=== PATIENT | female | born 1995 | race African-American/Black ===

== ENCOUNTER 2019-12-10 15:01 | Outpatient (CLI) | payer OTHER, SELFPAY ==
--- NOTE | ~2019-12-10 | US_ITS ---
EXAMINATION: US OB <= 14 weeks fetus DATE: 12/10/2019 15:32 INDICATION: Uncertain dates. . TECHNIQUE: Real-time transabdominal pelvic ultrasound was performed. COMPARISON: None. FINDINGS: The uterus measures 10.4 x 6.7 x 8.1 cm. There is an intrauterine gestational sac. The crown ru mp length measures 4.1 cm, which correlates with an estimated gestational age of 11 weeks and 0 day(s ) (+/-) 1 week(s) and 0 day(s). heart motion is identified measuring 170 beats per minute (bpm) by M-mode Doppler. The right ovary measures 2.3 x 1.0 x 1.9 cm. The left ovary measures 3.0 x 1.8 x 2.3 cm. There is no free fluid in the pelvis. IMPRESSION: 1. Single living intrauterine gestation with estimated date of delivery of 06/30/2020. Reviewed, dictated and finalized at location A. IMPRESSION: 1. Single living intrauterine gestation with estimated date of delivery of 06/30.
== END 2019-12-10 15:02 ==
PROVIDERS: Visit Provider Obstetrics & Gynecology
DX: Z32.01 Encounter for pregnancy test, result positive (principal)
CPT/HCPCS: 76801

== ENCOUNTER 2020-04-23 20:07 | Emergency (ER) | payer OTHER, SELFPAY ==
--- NOTE | ~2020-04-23 | XR_ITS ---
EXAMINATION: XR wrist RT min 3V DATE: 04/23/2020 20:44 INDICATION: Right wrist pain. Injury. TECHNIQUE: 4 views of right wrist were obtained. COMPARISON: None. FINDINGS: Bone alignment is normal. No fracture. Joint spaces are well maintained. IMPRESSION: 1. Normal right wrist. Reviewed, dictated and finalized at location A. ING EDITOR IMPRESSION: 1. Normal right wrist.
[2020-04-23 20:10] VITALS: BP 138/57; PULSE 114; RESP 14; TEMP 36.3; O2SAT 98
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
--- NOTE | 2020-04-23 21:17 | PC.NURSE ---
L&D nurse is at bedside with monitor.
[2020-04-23 21:34] VITALS: BP 131/61; PULSE 97
[2020-04-24 00:15] VITALS: BP 125/73; PULSE 89; RESP 13; O2SAT 100
--- NOTE | 2020-04-24 00:44 | PC.NURSE ---
AT 0017 RBVO FROM EDP; DR TEA VILLAGRAN TO GENERATE, PRINT AND SIGN A ONE DAY WORK NOTE FOR THIS PT.
== END 2020-04-24 00:20 | disposition home or self-care (01) ==
PROVIDERS: Emergency Provider Emergency Medicine
DX: O9A.213 Injury, poisoning and certain other consequences of external causes complicating pregnancy, third trimester (principal); M25.531 Pain in right wrist; S09.90XA Unspecified injury of head, initial encounter; Y04.2XXA Assault by strike against or bumped into by another person, initial encounter; Z3A.30 30 weeks gestation of pregnancy
CPT/HCPCS: 36415; 73110; 85461; 99283

== ENCOUNTER 2020-06-30 05:03 | Inpatient (IN) | payer OTHER, BC, SELFPAY ==
[2020-06-30] VITALS (204 sets, daily range): BP systolic 93–144; BP diastolic 41–84; PULSE 62–142; RESP 18–20; TEMP 35.8–37.1; O2SAT 94–100; BMI 54.9
--- NOTE | 2020-06-30 05:28 | LDADM ---
This patient, Cinthia Valente, was admitted to Labor/Delivery/Recovery 102 on 06/30/20 at 05:03. Plans for labor, pain management and were discussed with patient. Patient/family oriented to hospital policies and general routines including ID bracelet, bed and alarms, visiting hours, pain management, procedures, bathroom and other care routines, personal items, smoking policy, room service/diet and guest tray routines, security routines, and visiting hours. Patient/Family are encouraged to report perceived risks to care and to ask questions if they do not understand what they are told or what they should do. See OBIX for further documentation.
[2020-06-30 05:58] LABS: Basophils Percent Auto 0.3 % (0.2-1.2); Eosinophils Percent Auto 0.2 % (0-4.4); Immature Granulocyte Absolute 0.06 K/mm3 (0.00-0.031); Immature Granulocyte Percent A 0.5 % (0-0.5); Immature Platelet Fraction Pct 13.9 % (0.9-11.2); Lymphocytes Absolute Auto 2.25 K/mm3 (0.9-3.2); Lymphocytes Percent Auto 18.9 % (18.3-44.2); Mean Corpuscular HGB Conc 31.3 g/dl (32-36); Mean Corpuscular Hemoglobin 26.8 pg (26-34); Mean Corpuscular Volume 85.8 fl (80-100); Monocytes Absolute Auto 0.6 K/mm3 (0.1-0.6); Monocytes Percent Auto 5.2 % (2.6-8.5); Neutrophils Absolute Auto 8.9 K/mm3 (1.3-6.7); Neutrophils Percent Auto 74.9 % (45.5-73.1); Platelet Count Result 164 k/mm3 (150-375); Red Blood Count 3.73 M/mm3 (4.2-5.4); Red Cell Distribution Width 18.6 % (11.5-14.5); White Blood Count 11.9 K/mm3 (4.5-10.0)
[2020-06-30] MEDS: OXYTOCIN 30 UNITS/NS 500 ML 30 UNITS/500 ML BAG 6 UNITS IV CONT (06:00)
[2020-06-30] MEDS: LACTATED RINGERS 1,000 ML 125 ML IV CONT ×5 (06:00→21:45)
[2020-06-30 08:50] LABS: Rapid Plasma Reagin Non-Reactive (NonReactive)
--- NOTE | 2020-06-30 11:55 | WPDOBADMIT ---
Obstetrics - Admit Note Admission Note: AROm clear fluid /-2 clear fluid. vertex. record reviewed. No pertinent additions to the history and/or any subsequent changes in the physical findings that are not consistent with the expected course of the were found. Additions to the history and/or subsequent changes in the physical findings follow. None.
[2020-06-30] MEDS: fentaNYL CITRATE INJ (*CRX) 100 MCG/2 ML VIAL 50 MCG IV PUSH (12:19)
[2020-06-30] MEDS: ONDANSETRON INJ 4 MG/2 ML VIAL IV PUSH (13:11)
--- NOTE | 2020-06-30 13:51 | WPDANESEPP ---
Anes - Eval Pre Procedure Procedure: Labor Epidural Date/Time: 06/30/20 13:51 Surgeon: Truong Preop Diagnosis: Labor Pain Pre Op Diagnosis: Induction of Labor Patient Data Age: 25 Gender: F Height: 5 ft 2 in Weight: 136.3 kg Last Vital Signs Temp 36.6 C 06/30/20 05:19 Pulse 87 06/30/20 13:32 Resp 20 06/30/20 05:19 BP 132/70 06/30/20 13:32 Allergies Allergy/AdvReac Type Severity Reaction Status Date / Time shellfish derived Allergy Nausea and Verified 05/23/20 08:54 Vomiting Home Medications Medication Instructions Recorded Confirmed Type ergocalciferol (vitamin D2) 1,000 unit PO DAILY 04/23/20 06/30/20 History prenat.vits,deepika,asm-cwyn-fwprm 1 tablet PO DAILY 04/23/20 06/30/20 History [ Vitamin] Laboratory Tests 06/30/20 06/30/20 06/30/20 05:44 05:44 06:36 WBC 11.9 K/mm3 H K/mm3 (4.5-10.0) RBC 3.73 M/mm3 L M/mm3 (4.2-5.4) Hgb 10.0 g/dL L g/dL (12.0-15.0) Hct 32.0 % L % (37.0-47.0) MCV 85.8 fl fl (80-100) MCH 26.8 pg pg (26-34) MCHC 31.3 g/dl L g/dl (32-36) RDW 18.6 % H % (11.5-14.5) Plt Count 164 k/mm3 k/mm3 (150-375) MPV 12.0 fl H fl (7.4-10.4) Immature Gran % (Auto) 0.5 % % (0-0.5) Neut % (Auto) 74.9 % H % (45.5-73.1) Lymph % (Auto) 18.9 % % (18.3-44.2) [place] % (Auto) 5.2 % % (2.6-8.5) Eos % (Auto) 0.2 % % (0-4.4) Baso % (Auto) 0.3 % % (0.2-1.2) Lymph # (Auto) 2.25 K/mm3 K/mm3 (0.9-3.2) [place] # (Auto) 0.6 K/mm3 K/mm3 (0.1-0.6) Eos # (Auto) 0.0 K/mm3 K/mm3 (0-0.3) Baso # (Auto) 0.0 K/mm3 K/mm3 (0.0-0.1) Abs Immat Gran (auto) 0.06 K/mm3 H K/mm3 (0.00-0.031) Absolute Neuts (auto) 8.9 K/mm3 H K/mm3 (1.3-6.7) Absolute Nucleated RBC 0.0 K/mm3 K/mm3 (0.0-0.012) Nucleated RBC % 0.0 % % (0.0-0.2) % Immature Plt Fraction 13.9 % H % (0.9-11.2) RPR Non-reactive (NonReactive) Blood Type O Positive Antibody Screen Negative Patient hx anesthesia problems: none Family hx anesthesia problems: none [facility] Past Medical History Medical History No active medical problems Family History Family History Father Hypertension Grandparent Hypertension Diabetes mellitus Social History Social History Smoking status: Never smoker Substance use: never Gender identity (if verbalized by the patient): Female Spiritual care concerns: No Exam Day of Procedure 06/30/20 13:51 Patient weight: morbidly obese Heart: regular rate and rhythm Lungs: normal air movement Airway: Mallampati scale class II Neurological: alert and oriented
[2020-07-01] VITALS (254 sets, daily range): BP systolic 85–152; BP diastolic 38–132; PULSE 59–196; RESP 15–20; TEMP 36.5–37.4; O2SAT 82–100
[2020-07-01] MEDS: ONDANSETRON INJ 4 MG/2 ML VIAL IV PUSH (03:04)
[2020-07-01] MEDS: LACTATED RINGERS 1,000 ML 125 ML IV CONT ×2 (03:04→06:20)
[2020-07-01] MEDS: AMPICILLIN 2 GM/NS 100 ML 2 GM/100 ML BAG IVPB (05:19)
[2020-07-01] MEDS: SODIUM CHLORIDE 0.9% IV 1,000 ML 150 ML I-UTERINE (05:35)
[2020-07-01] MEDS: AMPICILLIN 1 GM/NS 50 ML 1 GM/50 ML BAG IVPB (09:43)
--- NOTE | 2020-07-01 11:46 | PM.IMHP ---
H&P: HPI History of Present Illness Date/Time: 07/01/20 11:46 Chief Complaint: no further dilation Narrative: Cinthia Valente is a 25 year old female primip admitted for IOL. Patient AROm clear fluid and IUPC placed. Patient pitocin discontinued for decels which resolved .Patient labor progressed to 9 cm with no casino change attendant last 5 hours despite adequate contractions. Patient reports movement PMFSH Past Medical History Medical History No active medical problems Family History Family History Father Hypertension Grandparent Hypertension Diabetes mellitus Social History Social History Smoking status: Never smoker Substance use: never Gender identity (if verbalized by the patient): Female Spiritual care concerns: No Meds Home Medications and Allergies Home Medications Medication Instructions Recorded Confirmed Type ergocalciferol (vitamin D2) 1,000 unit PO DAILY 04/23/20 06/30/20 History prenat.vits,deepika,kvh-ffay-xrnue 1 tablet PO DAILY 04/23/20 06/30/20 History [ Vitamin] Allergies Allergy/AdvReac Type Severity Reaction Status Date / Time shellfish derived Allergy Nausea and Verified 05/23/20 08:54 Vomiting Vital Signs Vital Signs - 24 hr 06/30/20 12:00 06/30/20 12:01 06/30/20 12:32 Temperature 36.3 C L Pulse Rate 89 79 Respiratory Rate Blood Pressure 123/72 133/72 Pulse Oximetry 06/30/20 13:02 06/30/20 13:32 06/30/20 13:58 Temperature Pulse Rate 80 87 Respiratory Rate Blood Pressure 134/60 132/70 Pulse Oximetry 100 06/30/20 14:00 06/30/20 14:02 06/30/20 14:03 Temperature 35.8 C L Pulse Rate 91 89 Respiratory Rate Blood Pressure 144/69 H 140/61 Pulse Oximetry 99 06/30/20 14:04 06/30/20 14:07 06/30/20 14:08 Temperature Pulse Rate 95 90 Respiratory Rate Blood Pressure 131/71 132/68 Pulse Oximetry 100 06/30/20 14:09 06/30/20 14:13 06/30/20 14:14 Temperature Pulse Rate 107 H 86 Respiratory Rate Blood Pressure 135/70 131/70 Pulse Oximetry 100 06/30/20 14:17 06/30/20 14:18 06/30/20 14:19 Temperature Pulse Rate 75 82 Respiratory Rate Blood Pressure 126/52 L 117/48 L Pulse Oximetry 100 06/30/20 14:22 06/30/20 14:23 06/30/20 14:24 Temperature Pulse Rate 79 75 Respiratory Rate Blood Pressure 114/57 L 112/49 L Pulse Oximetry 100 06/30/20 14:27 06/30/20 14:28 06/30/20 14:29 Temperature Pulse Rate 72 71 Respiratory Rate Blood Pressure 118/52 L 119/55 L Pulse Oximetry 99 06/30/20 14:32 06/30/20 14:33 06/30/20 14:34 Temperature Pulse Rate 70 70 Respiratory Rate Blood Pressure 113/56 L 115/56 L Pulse Oximetry 98 06/30/20 14:37 06/30/20 14:38 06/30/20 14:39 Temperature Pulse Rate 76 71 Respiratory Rate Blood Pressure 115/53 L 111/55 L Pulse Oximetry 99 06/30/20 14:42 06/30/20 14:43 06/30/20 14:44 Temperature Pulse Rate 72 76 Respiratory Rate Blood Pressure 108/55 L 106/63 Pulse Oximetry 98 06/30/20 14:47 06/30/20 14:48 06/30/20 14:49 Temperature Pulse Rate 68 70 Respiratory Rate Blood Pressure 110/52 L 109/53 L Pulse Oximetry 97 06/30/20 14:52 06/30/20 14:53 06/30/20 14:54 Temperature Pulse Rate 71 73 Respiratory Rate Blood Pressure 113/50 L 109/50 L Pulse Oximetry 98 06/30/20 14:57 06/30/20 14:58 06/30/20 15:02 Temperature Pulse Rate 67 76 Respiratory Rate Blood Pressure 104/49 L 107/66 Pulse Oximetry 98 06/30/20 15:03 06/30/20 15:08 06/30/20 15:13 Temperature Pulse Rate Respiratory Rate Blood Pressure Pulse Oximetry 100 97 100 06/30/20 15:17 06/30/20 15:18 06/30/20 15:23 Temperature Pulse Rate 74 Respiratory Rate Blood Pressure 112/64 Pul
[2020-07-01] MEDS: ceFAZolin 3 GM/D5W 100 ML 100 ML IVPB (11:55)
[2020-07-01] MEDS: OXYTOCIN 30 UNITS/NS 500 ML 30 UNITS/500 ML BAG 125 UNITS IV CONT (13:35)
[2020-07-01] MEDS: KETOROLAC 30 MG/ML VIAL (*BKC) IV PUSH (15:19)
[2020-07-01] MEDS: MORPHINE SULFATE (*CRX) 2 MG/ML INJ 3 MG IV PUSH (15:20)
--- NOTE | 2020-07-01 15:40 | PC.NURSE ---
Pt transferred to room 288 via stretcher accompanied by her mother and infant. Pt alert and awake and oriented to room 288 and surrounding area. PT transferred to bed via maxi air without difficulty. PT introductions made and plan of care discussed per post op c section, pain management, breast feeding, daily care activities. Welcome packet reviewed and discussed. PT verbalized understanding of such care.
[2020-07-01] MEDS: DOCUSATE SODIUM 100 MG CAPSULE PO (17:53)
[2020-07-01] MEDS: SIMETHICONE 80 MG TAB.CHEW PO (17:53)
[2020-07-01] MEDS: LANOLIN (LANSINOH) 7.5 GM CREAM 1 APPLIC TOPICAL (17:53)
[2020-07-01] MEDS: DEXTROSE 5%/0.45% SOD CHL 1,000 ML 125 ML IV CONT (17:57)
[2020-07-01] MEDS: IBUPROFEN 600 MG TABLET PO (23:13)
[2020-07-01] MEDS: HYDROcodone/acetaminophen (*CRX) 5-325 MG TABLET 1 TAB PO (23:13)
--- NOTE | 2020-07-02 00:20 | PM.PROC ---
Procedure Note - Detailed Date of procedure: 07/02/20 Pre-op diagnosis: Induction of Labor Post-op diagnosis: other (arrest of descent, arrest of dilation) Procedure performed: LTCS Description of procedure: patient was taken to the operating room with IV running. She was prepped and draped in a normal sterile fashion after epidural was found to be adequate. A Pfannenstiel skin incision was made with a scalpel carried down to the underlying layer of fascia. The fascial incision was then extended bilaterally with Louise scissors. The superior aspect of the incision was grasped with Bebeto clamps elevated and dissected off the rectus muscles. The inferior aspect of the incision was grasped with Bebeto clamps elevated and dissected off the rectus muscles. The rectus muscles were in the midline prior to proceeding to the peritoneum there was a rectal area bleeding that was suture ligated with 0 Vicryl suture. The peritoneum was entered bluntly bladder blade was inserted vesicouterine peritoneum was grasped with the PK and entered sharply with the Metzenbaum scissors and the bladder flap was created digitally. Bladder blade was reinserted and lower uterine segment was incised with a transverse fashion with the scalpel. head was delivered atraumatically the remainder of the fetus was delivered the cord was clamped and cut. and the fetus was handed off to the waiting nurse. Cord blood and cord gases were obtained. The placenta delivered spontaneously. The uterus was exteriorized and cleared of all clots and debris. Uterine incision was closed 0 Monocryl in a running locked fashion a 2nd layer the same suture was used to imbricate this incision on the patient's right corner of the incision and a enaznc-jl-paifu stitch was placed for hemostasis. The uterus was returned to the abdomen the gutters were cleared of all clots and debris and irrigated copiously. The uterine incision was covered in Interceed and T fashion. The muscles were re-examined for hemostasis the fascia was closed with 0 Vicryl in a running fashion. Subcutaneous tissue was irrigated and closed with 0 plain gut and the skin was closed with 4-0 Vicryl on a Donta needle patient received precancer Ancef prior to skin incision Anesthesia: epidural Surgeon: Demetrius Guerin MD Estimated blood loss (mL): 825 Urine output (mL): 200 Drains: Yes Packing: No Pathology: none sent Complications: None Condition: stable Disposition: PACU Findings: female vertex OT position
[2020-07-02 04:15] VITALS: BP 110/79; PULSE 91; RESP 20; TEMP 37.1
[2020-07-02 05:06] LABS: Basophils Percent Auto 0.2 % (0.2-1.2); Eosinophils Percent Auto 0.1 % (0-4.4); Hematocrit 26.3 % (37.0-47.0); Hemoglobin 8.3 g/dL (12.0-15.0); Immature Granulocyte Absolute 0.06 K/mm3 (0.00-0.031); Immature Granulocyte Percent A 0.4 % (0-0.5); Lymphocytes Percent Auto 13.5 % (18.3-44.2); Mean Corpuscular HGB Conc 31.6 g/dl (32-36); Mean Corpuscular Hemoglobin 26.3 pg (26-34); Mean Corpuscular Volume 83.5 fl (80-100); Mean Platelet Volume 12.3 fl (7.4-10.4); Monocytes Absolute Auto 1.1 K/mm3 (0.1-0.6); Monocytes Percent Auto 6.8 % (2.6-8.5); Neutrophils Absolute Auto 12.3 K/mm3 (1.3-6.7); Platelet Count Result 180 k/mm3 (150-375); Red Blood Count 3.15 M/mm3 (4.2-5.4); Red Cell Distribution Width 18.2 % (11.5-14.5); White Blood Count 15.5 K/mm3 (4.5-10.0)
[2020-07-02] MEDS: SIMETHICONE 80 MG TAB.CHEW PO ×2 (07:15→16:31)
[2020-07-02] MEDS: MULTIVIT/MIN/PREN/FOL AC/IRON TABLET 1 TAB PO (07:15)
[2020-07-02] MEDS: DOCUSATE SODIUM 100 MG CAPSULE PO ×2 (07:15→16:34)
[2020-07-02] MEDS: IBUPROFEN 600 MG TABLET PO ×2 (07:15→16:32)
[2020-07-02] MEDS: HYDROcodone/acetaminophen (*CRX) 10-325 MG TABLET 1 TAB PO ×2 (07:16→16:32)
[2020-07-02] MEDS: POLYSACCHARIDE IRON COMPLEX 150 MG CAPSULE PO ×2 (07:16→16:34)
--- NOTE | 2020-07-02 07:32 | WPDANLDNPN2 ---
Anes-Prog Note L&D-Neuraxial Date/Time: 07/02/20 07:32 Neuraxial medications: epidural PF morphine Opiod-related complaints: none Patient feedback: Patient satisfied with post-operative pain management.
--- NOTE | 2020-07-02 07:32 | WPDANLDPN2 ---
Anes-Prog Note L&D Date/Time: 07/02/20 07:32 Comfortable throughout: section Neuraxial method: epidural Epidural/Spinal procedure site: clean & non-tender Neuro status: Neuro function grossly intact. Cardiovascular status: normal Respiratory status: normal Airway patency: baseline Mental status: baseline Post-Op hydration status: normal Vital Signs: Last Vital Signs Temp 37.1 C 07/02/20 04:15 Pulse 91 07/02/20 04:15 Resp 20 07/02/20 04:15 BP 110/79 07/02/20 04:15 Pulse Ox 95 07/01/20 18:00 Pain score (VAS): no complaints I/O: Intake & Output 07/01/20 07/01/20 07/02/20 15:59 23:59 07:59 Intake Total 350 1120 200 Output Total 1265 950 600 Balance -915 170 -400 Post-procedural complaints: none Patient feedback: Patient satisfied with anesthetic care.
[2020-07-02 17:54] VITALS: BP 116/52; PULSE 94; RESP 18; TEMP 36.7
[2020-07-02 20:00] VITALS: BP 120/62; PULSE 88; RESP 16; TEMP 36.8; O2SAT 100
--- NOTE | 2020-07-03 00:59 | PM.OBPNVD ---
OB - PN: Subj Subjective Date/time seen: 07/03/20 00:59 Patient reports doing well no complaints. OB - PN: Obj Data Labs CBC & Chem 7: 07/02/20 04:18 Labs: Laboratory Results - last 24 hr 07/02/20 04:18 WBC 15.5 H RBC 3.15 L Hgb 8.3 L Hct 26.3 L MCV 83.5 MCH 26.3 MCHC 31.6 L RDW 18.2 H Plt Count 180 MPV 12.3 H Immature Gran % (Auto) 0.4 Neut % (Auto) 79.0 H Lymph % (Auto) 13.5 L [place] % (Auto) 6.8 Eos % (Auto) 0.1 Baso % (Auto) 0.2 Lymph # (Auto) 2.10 [place] # (Auto) 1.1 H Eos # (Auto) 0.0 Baso # (Auto) 0.0 Abs Immat Gran (auto) 0.06 H Absolute Neuts (auto) 12.3 H Absolute Nucleated RBC 0.0 Nucleated RBC % 0.0 OB - PN A/P Assessment and Plan (1) Arrest of descent, delivered, current hospitalization: Code(s): O62.1 - Secondary uterine inertia Status: Acute (2) S/P emergency : Code(s): Z98.891 - History of uterine scar from previous surgery Status: Acute Assessment and Plan: continue with pp care. Time Spent With Patient Time: Total time spent is greater than 50% in coordination of care (as documented) at patient's floor/unit and/or counseling patient: Exam GI: Other: incision C/D/I
[2020-07-03] MEDS: HYDROcodone/acetaminophen (*CRX) 10-325 MG TABLET 1 TAB PO (03:54)
[2020-07-03] MEDS: SIMETHICONE 80 MG TAB.CHEW PO (03:54)
[2020-07-03] MEDS: IBUPROFEN 600 MG TABLET PO (03:55)
[2020-07-03] MEDS: DOCUSATE SODIUM 100 MG CAPSULE PO (08:34)
[2020-07-03] MEDS: HYDROcodone/acetaminophen (*CRX) 5-325 MG TABLET 1 TAB PO (08:34)
[2020-07-03] MEDS: MULTIVIT/MIN/PREN/FOL AC/IRON TABLET 1 TAB PO (08:34)
[2020-07-03] MEDS: CHOLECALCIFEROL 1,000 UNITS TABLET 1000 UNITS PO (08:34)
[2020-07-03] MEDS: POLYSACCHARIDE IRON COMPLEX 150 MG CAPSULE PO (08:34)
--- NOTE | 2020-07-03 08:35 | PC.NURSE ---
Patient viewed the discharge video Mother & Baby Care, The First Two Weeks . Patient was given the opportunity and encouraged to ask questions. Patient verbalized understanding of information shared and has been given the mother/baby guide for home reference.
[2020-07-03 09:30] VITALS: BP 125/67; PULSE 85; RESP 18; TEMP 36.3; O2SAT 97
--- NOTE | 2020-07-03 09:42 | PM.OBPNVD ---
OB - PN: Subj Subjective Date/time seen: 07/03/20 09:42 Patient comments: no complaints and pain well controlled (taking minimal Kamrar) [place] baby status: doing well OB - PN: Obj Data Labs CBC & Chem 7: 07/02/20 04:18 OB - PN A/P Assessment and Plan (1) S/P emergency : Code(s): Z98.891 - History of uterine scar from previous surgery Status: Acute Assessment and Plan: POD 2 Doing well. DC home. Plans Mirena for control Plan day: 2 Time Spent With Patient Time: Total time spent is greater than 50% in coordination of care (as documented) at patient's floor/unit and/or counseling patient: Exam Narrative: Exam Narrative: inc c/d/i : Bimanual exam- vagina & uterus: other (Uterus firm, nt @U)
--- NOTE | 2020-07-03 10:41 | PC.NURSE ---
Mother verbalizes she is able to independently latch with appropriate positioning/alignment. Offered to help wake infant and assess feeding. Mom states, I have been latching her the whole time by myself. She latches fine. Mom states she was going to bottle feed her pumped colostrum this feeding. Infant takes 8ml of pumped colostrum quickly. Encouraged mom to latch if infant still seems hungry. Mom states she is having minimal nipple discomfort, is feeding as required and waking to feed if needed. has had 7 effective feedings at the breast in the past 24 hours and one feeding of pumped colostrum, and is currently meeting outcomes for weight, output, jaundice and feeding frequencies. Educated mom on waking to feed at the 3 hour louisa after each feeding and to get 8-12 feedings in 24 hours. Reviewed ways to wake including taking down to her diaper, doing skin to skin, changing diapers, burping, rubbing her head/back. Mother states she feels confident to continue effective at home. Reviewed transition to breast milk, signs of adequate intake, and engorgement/relief. Instructed to call ICP if intake/output less than required. Reviewed community resources on the [facility] website and in the Mom/Baby guide. Information on outpatient services provided. Mother has no further questions at this time.
--- NOTE | 2020-07-17 11:20 | PM.OBDSVD ---
DS: Admitting Diagnosis Admitting Diagnosis Admitting Diagnosis: IOL DS: Discharge Diagnosis Discharge Diagnosis (1) S/P emergency : Code(s): Z98.891 - History of uterine scar from previous surgery Status: Acute (2) Arrest of descent, delivered, current hospitalization: Code(s): O62.1 - Secondary uterine inertia Status: Acute OB - DS: Summary OB Procedures : Ultrasound OB Procedures Intrapartum: OB Procedures: : None Peripartum Data Procedures: Procedures Operation Date: 07/01/20 11:30 Actual Procedures Side Surgeon p Section Demetrius Guerin MD Time Spent with Patient Time attestation: Total time spent providing and/or coordinating discharge services: Discharge Plan Discharge Attending physician on discharge: Demetrius Guerin Discharging Clinician: Evi Garcia Anticipated Discharge Date/Time: 07/03/20 09:44 Patient Disposition: Home, Self-Care Activity: may shower, may drive after 2 weeks and pelvic rest Diet: regular Discharge Instructions: Education: Mom and Baby Guide and Preeclampsia Handout Given to: Mother Follow-Up: Call your delivering provider's office for an appointment to be seen in: 1 Week Mom and baby should come to the [facility] for the follow-up appointment. Appointment Date/Time: July 04, 2020 at 8:00 am What to expect at your follow-up visit: Physical Assessment Call [phone] if you are unable to keep your appointment time. BREAST CARE: * Wear a snug supportive bra. * For engorgement discomfort: Breast Feeding: * Apply warm moist washcloths * Express milk as needed to relieve engorgement * Wear loose clothing * For sore nipples: * Identify correct latch-on * Apply warm moist washcloths before and after nursing * Air dry nipples after nursing * May apply Lansinoh cream to nipples ABDOMINAL INCISION: (if applicable) * Allow incision to air dry * Do NOT use lotions for powders on your incision * When showering, allow soap and water to run over the incision, but do not wash incision EPISIOTOMY/PERINEAL CARE: * Until bleeding stops, use your robina bottle after urinating * Change your pad frequently throughout the day * No tub baths until seen by your physician - You may shower ACTIVITY: * Rest as much as possible. * Do not exercise or lift anything heavier than your baby (such as laundry or other children.) * Avoid stairs or driving as much as possible. * Do not put anything into the vagina. No douching, tampons, or sexual activity until seen by physician. NOTIFY PHYSICIAN IF YOU HAVE ANY QUESTIONS OR IF ANY OF THE FOLLOWING SYMPTOMS OCCUR: * If your incision becomes red, swollen, or more painful than what you have experienced in the hospital. * If your vaginal bleeding becomes foul smelling. * If your vaginal bleeding becomes more heavy than a period or if your bleeding changes from pink to bright red. However, you may pass an occasional walnut-sized clot once or twice for the first week . * If you experience a sharp, shooting pain in you calves. * If you discover a hard, reddened area on your breast or if you experience flu-like symptoms. DIET: * Eat regular, well-balanced meals. * Drink plenty of fluids daily. If , drink to thirst. Stand Alone Forms: General Discharge Information Follow-up/Referrals: Evi Garcia MD [Physician] - Demetrius Guerin MD [Physician] - 1 Week (and 6 wk) Discharge Medications: New hydrocodone-acetaminophen 5-325 mg Tablet 1 tablet PO Q3H PRN (Reason: Moderate Pain (4-6)) Qty: 15 RF: 0 Continued ergocalciferol (vitamin D2) 1,000 unit Capsule 1,000 unit PO DAILY RF: 0 prenat.vits,deepika,noe-dztb-chvds Tablet 1 tablet PO DAILY RF: 0 Date of admission: 06/30/20 05:03 Primary
== END 2020-07-03 12:41 | disposition home or self-care (01) | DRG 788 ==
LOC: ANHLDR 05:08 → ANHOB2 07-03 09:46 → ANHLDR 07-06 11:10 → ANHOB2 07-06 11:10
PROVIDERS: Admitting Provider Obstetrics & Gynecology; PCP Physician Assistant; Visit Provider Obstetrics & Gynecology Gynecology
PROC: (CPT 59514; principal; 2020-07-01 11:30)
DX: O34.211 Maternal care for low transverse scar from previous cesarean delivery (principal); Z37.0 Single live birth; Z3A.39 39 weeks gestation of pregnancy; O42.90 Premature rupture of membranes, unspecified as to length of time between rupture and onset of labor, unspecified weeks of gestation; O99.214 Obesity complicating childbirth; E66.01 Morbid (severe) obesity due to excess calories; O62.1 Secondary uterine inertia; O36.8330 Maternal care for abnormalities of the fetal heart rate or rhythm, third trimester, not applicable or unspecified
CPT/HCPCS: 36415; 85025; 85055; 86592; 86850; 86900; 86901; A9270; J0131; J0290; J0690; J1885; J2270; J2274; J2405; J2590; J2795; J3010; J7030; J7120

== ENCOUNTER 2023-11-12 17:30 | Emergency (ER) | payer MEDICAID, SELFPAY ==
[2023-11-12 17:39] VITALS: BP 144/88; PULSE 93; RESP 16; TEMP 36.9; O2SAT 100
--- NOTE | 2023-11-12 18:30 | ED.GENADULT ---
HPI - General Adult General Chief complaint: PERSONNEL DIRECTOR <Candelario Aviles MD - Last Filed: 11/12/23 18:32> Stated complaint: yeast infection <Candelario Aviles MD - Last Filed: 11/12/23 18:32> Time Seen by Provider: 11/12/23 17:39 <Candelario Aviles MD - Last Filed: 11/12/23 18:32> History of Present Illness HPI narrative: Patient is a 28-year-old female who presents ER with 3 days of vaginal discharge. It began 3 days after finishing antibiotic and she is concerned it could be a yeast infection. But she had also been in the swimming pool that sometimes gives her vaginal discharge and she has been sexually active with a partner she is concerned have an STI. She would like full evaluation. No pelvic cramping or pain. No urinary frequency urgency or dysuria. <Candelario Aviles MD - Last Filed: 11/12/23 18:32> Related Data Home medications: Home Medications Medication Instructions Recorded Confirmed ergocalciferol (vitamin D2) 1,000 1,000 unit PO DAILY 04/23/20 06/30/20 unit capsule prenat.vits,deepika,[id number] 1 tablet PO DAILY 04/23/2021 <Candelario Aviles MD - Last Filed: 11/12/23 18:32> Allergies/adverse reactions: Allergies Allergy/AdvReac Type Severity Reaction Status Date / Time shellfish derived Allergy Nausea and Verified 05/23/20 08:54 Vomiting <Candelario Aviles MD - Last Filed: 11/12/23 18:32> Review of Systems Constitutional: Constitutional: Reports no additional constitutional complaints <Candelario Aviles MD - Last Filed: 11/12/23 18:32> Gastrointestinal: Gastrointestinal: Reports no additional gastrointestinal complaints <Candelario Aviles MD - Last Filed: 11/12/23 18:32> Genitourinary: Genitourinary: Denies abnormal vaginal bleeding, Denies nocturia, Denies dysuria, Denies pelvic pain and Reports vaginal discharge <Candelario Aviles MD - Last Filed: 11/12/23 18:32> PMFSH Past Medical History Medical History: Medical History (Updated 11/12/23 @ 20:27 by Jamey Obando MD) Arrest of descent, delivered, current hospitalization No active medical problems <Candelario Aviles MD - Last Filed: 11/12/23 18:32> Surgical History Surgical History: Surgical History (Updated 07/03/20 @ 01:00 by Demetrius Guerin MD) S/P emergency <Candealrio Aviles MD - Last Filed: 11/12/23 18:32> Family History Family History: Family History Father Hypertension Grandparent Hypertension Diabetes mellitus <Candelario Aviles MD - Last Filed: 11/12/23 18:32> Social History Social History: Social History Smoking status: Never smoker Substance use: never Gender identity (if verbalized by the patient): Female Spiritual care concerns: No <Candelario Aviles MD - Last Filed: 11/12/23 18:32> Exam Narrative: GENERAL: Well-appearing, Morbidly obese, and in no acute distress. HEAD: Normocephalic, atraumatic. ENT: Mucous membranes moist. CHEST: Clear to auscultation. No respiratory distress. HEART: Regular rate and rhythm. Normal peripheral pulses. ABDOMEN: Soft, nontender, nondistended. : normal appearing cervix, pooling vaginal discharge that is whitish yellow. Normal external genitalia. No CMT. EXTREMITIES: Normal range of motion. No edema. NEURO: Alert and oriented x3. PSYCH: Normal mood and affect. <Candelario Aviles MD - Last Filed: 11/12/23 18:32> Course Vital Signs Vital signs: Vital Signs Temperature 36.9 C 11/12/23 17:39 Pulse Rate 93 11/12/23 17:39 Respiratory Rate 16 11/12/23 17:39 Blood Pressure 144/88 H 11/12/23 17:39 Pulse Oximetry 100 11/12/23 17:39 Oxygen Delivery Room Air 11/12/23 17:39 Temperature 36.9 C 11/12/23 17:39 Pulse Rate 93 11/12/23 17:39 Respiratory Rate 16 11/12/23 17:39 Blood Pressure 144/88 H
[2023-11-12 18:59] LABS: Appearance Urine Cloudy (Clear); Bacteria Urine 3+ /hpf; Bilirubin Urine Negative (Negative); Blood Urine Negative (Negative); Color Urine Yellow (Yellow); Glucose Urine UA Negative (Negative); Ketones Urine Trace mg/dL (Negative); Leukocyte Esterase Ur 1+ LEU/UL (Negative); Nitrate Urine Negative (Negative); Non Pathogenic Casts 0-2; Protein Urine Trace mg/dL (Negative); RBC Urine 0-2 /hpf (0-2); Squamous Epithelial Cell Urine Moderate /hpf (Few); pH Urine 6.5 (5.0-9.0)
[2023-11-12 19:05] LABS: Add Urine Microscopic? YES; Specific Grav Ur 1.037 (1.001-1.035)
[2023-11-12 19:42] LABS: Trichomonas Vag PCR DETECTED (NOT DETECTE)
[2023-11-12 20:17] LABS: Chlamydia trachomatis NOT DETECTED (NOT DETECTE); Neisseria gonorrhoeae PCR NOT DETECTED (NOT DETECTE)
[2023-11-12] MEDS: metroNIDAZOLE 500 MG TABLET PO (20:46)
[2023-11-12] MEDS: AZITHROMYCIN 250 MG TABLET 1000 MG PO (20:46)
[2023-11-12] MEDS: LIDOCAINE HCL 1% LOCAL INJ 10 ML VIAL (20:58)
[2023-11-12] MEDS: cefTRIAXone 1 GM VIAL IM (20:58)
[2023-11-12 21:02] VITALS: BP 122/79; PULSE 82; RESP 19; O2SAT 100
== END 2023-11-12 21:02 | disposition home or self-care (01) ==
PROVIDERS: Emergency Provider Emergency Medicine
DX: A59.01 Trichomonal vulvovaginitis (principal); N39.0 Urinary tract infection, site not specified
CPT/HCPCS: 81001; 81025; 87086; 87088; 87491; 87591; 87661; 96372; 99284; A9270; J0696

== ENCOUNTER 2024-04-08 15:07 | Emergency (ER) | payer OTHER, MEDICAID, SELFPAY ==
--- NOTE | 2024-04-08 15:14 | ED_ITS ---
HPI - Female Genitourinary General Chief complaint: Urogenital-Female Stated complaint: UTI Time Seen by Provider: 04/08/24 15:23 Source: patient, RN notes reviewed and old records reviewed Mode of arrival: ambulatory Limitations: no limitations History of Present Illness HPI Narrative: 28-year-old female presents to the [facility] with concerns for UTI. Patient reports frequency for about a week. Noticed some discomfort with urination, lower abdominal, suprapubic discomfort over the last 2 days. Has been increasing her water intake and drinking cranberry juice. Denies any fevers, nausea, vomiting or diarrhea. Denies any significant abdominal pain. No CVA tenderness. Denies chances of . Patient reports having a tubal ligation. Related Data Home Medications Medication Instructions Recorded Confirmed ergocalciferol (vitamin D2) 1,000 1,000 unit PO DAILY 04/23/20 04/08/24 unit capsule prenat.vits,deepika,[id number] 1 tablet PO DAILY 04/23/20 06/30/20 Allergies Allergy/AdvReac Type Severity Reaction Status Date / Time shellfish derived Allergy Nausea and Verified 04/08/24 15:08 Vomiting Review of Systems Review of Systems: All systems reviewed & are unremarkable except as noted in HPI and below Constitutional: Constitutional: Reports no additional constitutional complaints ENT: Reports system reviewed and no additional complaints, except as documented Cardiovascular: Cardiovascular: Reports no additional cardiovascular complaints, Denies chest pain and Denies dyspnea Respiratory: Respiratory: Reports no additional respiratory complaints, Denies chest congestion, Denies cough and Denies dyspnea Gastrointestinal: Gastrointestinal: Reports no additional gastrointestinal complaints, Denies abdominal pain, Denies nausea and Denies vomiting Genitourinary: Genitourinary: Reports as per HPI Musculoskeletal: Musculoskeletal: Reports no additional musculoskeletal complaints Integumentary/Breasts: Skin/Breast: Reports system reviewed and no additional complaints, except as docu PMFSH Past Medical History Medical History Arrest of descent, delivered, current hospitalization No active medical problems Surgical History Surgical History H/O tubal ligation Hx of cholecystectomy 06/2023 S/P emergency Family History Family History Father Hypertension Grandparent Hypertension Diabetes mellitus Social History Social History Smoking status: Never smoker Substance use: never Gender identity (if verbalized by the patient): Female Spiritual care concerns: No Comments At the time of my signature, I reviewed and agree with the nursing past medical, surgical, social, and family history. There is no relevant family history pertinent to the patient complaint. Exam Const: General: cooperative, healthy appearing, comfortable, no acute distress, well developed, alert and well nourished Nutritional Appearance: well nourished and obese Orientation/consciousness: patient oriented x3 Limitations: no limitations HENMT: Head: normal to inspection Ears: hearing grossly normal bilaterally and external ears normal Face/Nose/Sinus: Normal external nose present, normal facial exam and face symmetric Face and sinus: normal facial exam and face symmetric Eyes: General: appearance normal, both eyes and all related structures Alignment and Position: alignment normal Periorbital: periorbital findings normal Neck: Neck: normal visual inspection, full ROM, no lymphadenopathy and no meningeal signs Chest: Chest palpation & inspection: normal inspection of the chest Resp: Effort & Inspection: normal respiratory effort and able to speak in complete sentences Auscultation: clear to auscultation bilaterally, no crackles, no rales, no rhonchi and no wheezes Cardio: Rate: regular rate Skin: General skin exam: normal color and no rashes or lesions noted Lesions: no lesions Rashes: no rashes Wounds: no wounds Neuro: General: patient oriented x3, gait normal, tone normal, moves all extremities and no meningeal signs Cognition (Neuro): normal cognition S peech: normal speech Gait exam (Neuro): Normal gait present Extrem: General: normal to inspection, full ROM, capillary refill normal and normal gait Psych: Appearance: grossly normal and well kempt Mental Status: mental status grossly normal Speech and movement: Normal speech and movement present and Clear speech present Affect: normal affect Attitude: cooperative Course Course Level of Care: Express Care Visit Vital Signs Vital signs: Vital Signs Temperature 97.9 F 04/08/24 15:15 Pulse Rate 80 04/08/24 15:15 Respiratory Rate 16 04/08/24 15:15 Blood Pressure 134/75 04/08/24 15:15 Pulse Oximetry 100 04/08/24 15:15 Oxygen Delivery Room Air 04/08/24 15:15 Temperature 97.9 F 04/08/24 15:15 Pulse Rate 80 04/08/24 15:15 Respiratory Rate 16 04/08/24 15:15 Blood Pressure 134/75 04/08/24 15:15 Pulse Oximetry 100 04/08/24 15:15 Oxygen Delivery Room Air 04/08/24 15:15 Reviewed MDM - Female Genitourinary MDM Narrative Medical decision making narrative: Patient sitting comfortably in exam room. Nontoxic, vitals stable. Patient in no acute distress Patient presents with urinary symptoms Patient has blood and leukocytes as well as nitrites in the urine. Will treat for UTI, send for culture Patient appropriate for outpatient treatment Discharge instructions reviewed with patient, as well as provided in writing per nursing staff. The instructions also include specific and strict return/GO TO THE ER as well as f/u information. All questions have been answered, and the patient deny any further questions with discharge and discharge plan. Some parts of this dictation were generated by voice recognition software and may contain typographical and/or grammatical inaccuracies. Differential Diagnosis Differential diagnosis: Likely urinary tract infection and cystitis Lab Data Labs: Lab Results 04/08/24 Range/Units 15:22 POC Urine Color Yellow POC Urine Clarity Cloudy POC Urine pH 6.5 POC Ur Specif [place] 1.030 POC Urine Protein 2+ (Negative) POC Ur Glucose (UA) Negative (Negative) POC Urine Ketones Negative (Negative) POC Urine Blood 3+ (Negative) POC Urine Nitrite Positive (Negative) POC Urine Bilirubin Negative (Negative) POC Urine Urobilinogen 1.0 POC U Leukocyte Esteras 2+ (Negative) Reviewed Critical Care Time Critical Care Time Critical Care Time: No Discharge Plan Discharge Clinical Impression: Urinary tract infection Patient Disposition: Home, Self-Care Condition: Stable Instructions: Antibiotic Form, Urinary Tract Infection in Women (DC) Additional Instructions: Increased water intake Take Tylenol as needed for pain Take antibiotic as prescribed Today your urine dip showed a probability of a UTI. You have been prescribed an antibiotic. Your urine will be sent to our lab for a culture. If at that time a bacteria grows that is not covered by the antibiotic prescribed you will be notified. Follow-up with primary care For new or worsening symptoms go directly to the emergency room Patient Language: Occitan Prescriptions: New nitrofurantoin monohyd/m-cryst [Macrobid] 100 mg capsule 100 mg PO Q12H 5 Days Qty: 10 0RF Rx Instructions: must administer with a meal/food No Action ergocalciferol (vitamin D2) 1,000 unit Capsule 1,000 unit PO DAILY Patient Comments: unknown dose. prenat.vits,deepika,[id number] Tablet 1 tablet PO DAILY Follow-up/Referrals: PHYSICIAN,DESIGN TRANSFERRER [Primary Care Provider] - Stand Alone Forms: Work/School Release IP Time of Disposition: 15:33
[2024-04-08 15:15] VITALS: BP 134/75; PULSE 80; RESP 16; TEMP 36.6; O2SAT 100
[2024-04-08 15:29] LABS: EDUAAPPEAR Cloudy; EDUABILI Negative (Negative); EDUABLOOD 3+ (Negative); EDUACOLOR1 Yellow; EDUAGLUCOSE Negative (Negative); EDUAKETONE Negative (Negative); EDUALEUKO 2+ (Negative); EDUANITRATE Positive (Negative); EDUAPH 6.5; EDUAPROTEIN 2+ (Negative)
== END 2024-04-08 15:35 | disposition home or self-care (01) ==
PROVIDERS: Emergency Provider Nurse Practitioner
DX: N39.0 Urinary tract infection, site not specified (principal)
CPT/HCPCS: 81003; 87077; 87086; 87186; 99213; G0463